=== PATIENT | female | born 1960 | race Caucasian/White ===

== ENCOUNTER 2023-01-29 13:02 | Observation (INO) ==
--- NOTE | 2023-01-29 13:21 | ED Triage Note ---
Date of Service January 29, 2023 History of Present Illness This patient was briefly evaluated while in triage. An abbreviated physical exam was performed. This patient is a 62-year-old Female who presents to the ED for evaluation of hypertension and a headache. She was referred to the ED for blood pressures over 200 systolic while being evaluated for a colonoscopy today. She developed a headache 2/[address] to the ED. She denies any changes in vision, slurred speech, weakness, or numbness, chest pain, or shortness of breath. Physical Exam CONSTITUTIONAL: in no acute pain or distress, resting comfortably SKIN: pink, warm, dry CARDIAC: regular rate and rhythm RESPIRATORY: in no respiratory distress, lungs clear to auscultation NEURO: no focal deficits. no weakness. Initial orders for labs and / or imaging were placed and patient was placed in the waiting area until a bed is available. Please see further documentation for the full ED course.
[2023-01-29 13:43] LABS: Basophils # (auto) 0.02 K/uL (0-0.2); Basophils % (auto) 0.5 %; Eosinophils # (auto) 0.07 K/uL (0-0.50); Eosinophils % (auto) 1.7 %; Hematocrit (blood only) 39.4 % (37.0-47.0); Hemoglobin 13.4 g/dl (12.0-16.0); Immature Granulocytes # (auto) 0.02 K/uL (0.01-0.20); Immature Granulocytes % (auto) 0.5 %; Lymphocytes # (auto) 1.42 K/uL (1.2-3.4); Lymphocytes % (auto) 33.5 %; Mean Corpuscular Hemoglobin 29.8 pg (25.0-34.0); Mean Corpuscular Volume 87.8 fL (80.0-100.0); Monocytes # (auto) 0.27 K/uL (0.11-0.59); Monocytes % (auto) 6.4 %; Neutrophils # (auto) 2.44 K/uL (1.40-6.50); Neutrophils % (auto) 57.4 %; Platelet Count 290 K/uL (130-400); RDW Coefficient of Variation 14.2 % (11.5-14.5); RDW Standard Deviation 45.2 fL (36.4-46.3); Red Blood Count 4.49 M/uL (4.20-5.40); White Blood Count 4.24 K/ul (4.8-10.8)
[2023-01-29 13:59] LABS: Alanine Aminotransferase 18 U/L (7-52); Albumin Globulin Ratio 1.6 (0.9-2); Albumin Level 4.3 gm/dl (3.4-5.0); Alkaline Phosphatase 81 U/L (34-104); Anion Gap 6 (3-11); Aspartate Aminotransferase 17 U/L (13-39); BUN Creatinine Ratio 17.2 (10-20); Bilirubin,Total 0.4 mg/dl (0.2-1.0); Blood Urea Nitrogen 15 mg/dl (6-23); Calcium 9.3 mg/dl (8.6-10.3); Carbon Dioxide 25 mmol/L (21-32); Chloride 108 mmol/L (98-107); Est GFR (African American) 83.9 ml/min; Est GFR (Non-African American) 72.4 ml/min; Globulin 2.7 gm/dl (2.5-4.0); Glucose 93 mg/dl (70-99(Fasting)); Sodium 139 mmol/L (136-145)
[2023-01-29 14:02] LABS: Troponin I High Sensitivity 4.9 pg/ml (0-14)
--- NOTE | 2023-01-29 14:28 | Emergency Department Note ---
Impression & Plan Hypertensive urgency, Leukopenia ED Provider Note NAME: ANDREW SIMMONS AGE: 62 SEX: F : 1960 ARRIVES VIA: Walk-In INFORMANT: Patient ED PROVIDER(S): Christiano Ross DO CHIEF COMPLAINT: HTN HPI: Patient is a 62-year-old female with a past medical history of hypertension and Claudio's esophagus who presents to the ER for elevated blood pressure. Patient was set up to have a colonoscopy today and went in and was found to have an elevated blood pressure in the 200s consequently was sent in. She denies any headache or change in vision. She does note that she had a little bit of a headache earlier today but that has abated. No chest pain or shortness of breath. Admits to diarrhea which has been going on since she started the prep. She denies any dysuria, urgency, or frequency. No other exacerbating or remitting factors. PAST MEDICAL HISTORY:See Below PAST SURGICAL HISTORY:See Below FAMILY HISTORY:See Below SOCIAL HISTORY:See Below HOME MEDICATIONS:See Below ALLERGIES:See Below VITALS:See Below PHYSICAL EXAMINATION: GENERAL: Sitting up in bed, alert, well appearing, well nourished, no distress, non-toxic EYE EXAM: normal conjunctiva. PERRL and EOM's grossly intact. OROPHARYNX: no exudate, no erythema, lips, buccal mucosa, and tongue normal and mucous membranes are moist NECK: supple, no nuchal rigidity, no adenopathy, non-tender LUNGS: Clear to auscultation. Normal chest wall mechanics HEART: no murmurs, S1 normal and S2 normal ABDOMEN: abdomen soft, non-tender, normo-active bowel sounds, no masses, no rebound or guarding. BACK: Back is symmetrical on inspection and there is no deformity, no midline tenderness, no CVA tenderness. SKIN: no rashes and no bruising UPPER EXTREMITIES: upper extremities are grossly normal. LOWER EXTREMITIES: No pitting edema. NEURO EXAM: Normal sensorium, cranial nerves II-XII intact, normal speech, no weakness of arms, no weakness of legs. No drift. Finger to nose intact. Gross sensation intact. MEDICAL DECISION MAKING: Patient is a 62-year-old female who presents ER for above-stated complaint. IV was established blood work was obtained. Labs show mild leukopenia at 4.2 thousand. No significant anemia. BMP with slightly elevated chloride at 108. LFTs bilirubin was unremarkable. Troponin was negative. UA was negative. EKG was nondiagnostic. She was given 2 dose of IV hydralazine with a heart rate in the 50s. She also given dose of Ativan as she was very worked up. Systolic pr essures trended down from 240 to 200. Discussed the case with Dr. Kyle Calhoun for further evaluation management treatment. She denies any chest pain or shortness of breath. No headache. No other exacerbating or remitting factors. Triage Nursing notes reviewed. Limited review of prior medical records performed Vital Signs: reviewed and remarkable for HTN Differential diagnosis: Cardiac ischemia, aortic dissection, pulmonary embolism, pneumothorax, pneumonia, pericarditis, myocarditis, esophageal rupture, GERD, cholecystitis, pancreatitis, musculoskeletal, as well as other pathologies. ER treatment provided: See below Diagnostics interpreted by me include EKG and cardiac monitoring as listed below: -Cardiac Monitoring: An order was placed for continuous cardiac monitoring. The monitor shows a rate of 60 with sinus rhythm. -ECG: Sinus rhythm rate of 58 Left axis No PVCs QTc 424 -Laboratory studies:Interpreted by me as stated above in MDM and shown below. Imaging studies: Xrays: As interpreted by me:none CTs show: CT of the head shows no obvious large bleed per my read CT of the head per radiology was negative Consultation(s): Discussed the case with Dr. Kyle Calhoun as described above Procedures:none Critical Care: I have personally spent 32 minutes of critical care time in the direct management of this patient. This includes bedside care, interpretation of diagnostic studies, and testing, discussion with consultants, patient, and family members, and other required patient management activities. This 32 minutes is in excess of all separately billable procedures. Past Med/Surg History Medical History Anxiety Barretts esophagus Fibromyalgia Hx of osteoarthritis Hx of seasonal allergies Hypertension Migraine Surgical History History of endometrial ablation History of esophagogastroduodenoscopy (EGD) w/dilation x2 Hx of colonoscopy Hx of laparoscopy x10 Hx of sinus surgery Hx of tooth extraction all teeth extracted due to "gum" issue Family History Other No family history of adverse response to anesthesia Social History Smoking Status: Current every day smoker Tobacco Type: Cigarettes Cigarettes Per Day: 5 CIG DAILY>ADVISED; Second Hand Exposure: No; Do You Dip or Chew Tobacco: No; Hx Alcohol Use: Yes Alcohol type: beer Preferred Language: Egyptian Communication Ability: Effective Nuclear Medicine Chief Technologist Required: No Beliefs That Will Affect Care: None Current Living Situation: Significant Other Feels Safe at Home: Yes Assistive Devices: Denture - Upper and Glasses Allergies Allergies Allergy/AdvReac Type Severity Reaction Status Date / Time ampicillin Allergy Intermediate Hives Verified 01/29/23 12:37 Home Meds Home Medications Medication Instructions Recorded Confirmed cholecalciferol (vitamin D3) 125 125 mcg PO QAM 07/01/22 01/29/23 mcg (5,000 unit) capsule omeprazole 40 mg capsule,delayed 40 mg PO QAM 07/01/22 01/29/23 release vitamin B complex (B 1 tab PO QAM 07/01/22 01/29/23 Complex-Vitamin B12 tablet) fluoxetine 40 mg capsule 40 mg PO HS 07/30/22 01/29/23 hydroxyzine HCl 25 mg tablet 25 mg PO QID PRN panic attacks 07/30/22 01/29/23 metoprolol succinate 50 mg 100 mg PO QAM 12/13/22 01/29/23 tablet,extended release 24 hr lorazepam 0.5 mg tablet 0.5 mg PO HS PRN as directed 01/29/23 01/29/23 promethazine 25 mg tablet 25 mg PO QID PRN Nausea 01/29/23 01/29/23 Results & Data (ED) Vital Signs Vital Signs - 24 hr 01/29/23 13:10 01/29/23 14:33 01/29/23 14:36 Temperature 36.6 C Temperature Source Temporal Artery Scan Pulse Rate 64 55 L Pulse Rate [Apical] 57 L Pulse Rate from SpO2 Sensor Respiratory Rate 18 21 Respiratory Effort / Characteristics Non-Labored Spontaneous Respiratory Depth Normal Blood Pressure 233/114 H Blood Pressure [Right Arm] Blood Pressure Mean 153 Blood Pressure Mean [Right Arm] Blood Pressure Position Sitting Pulse Oximetry 96 97 Oxygen Delivery Method Room Air Sepsis Recent Fever Within 48 Hours No Sepsis New/Unexplained Change in Mental Status N/A Sepsis Action Taken by Nursing No Action Required 01/29/23 14:35 01/29/23 14:36 01/29/23 14:36 Temperature Temperature Source Pulse Rate 54 L 59 L Pulse Rate [Apical] Pulse Rate from SpO2 Sensor 58 L Respiratory Rate 14 18 Respiratory Effort / Characteristics Respiratory Depth Blood Pressure 242/104 H Blood Pressure [Right Arm] Blood Pressure Mean 150 Blood Pressure Mean [Right Arm] Blood Pressure Position Pulse Oximetry 97 Oxygen Delivery Method Sepsis Recent Fever Within 48 Hours Sepsis New/Unexplained Change in Mental Status Sepsis Action Taken by Nursing 01/29/23 15:00 01/29/23 15:01 01/29/23 15:01 Temperature Temperature Source Pulse Rate 58 L 60 Pulse Rate [Apical] Pulse Rate from SpO2 Sensor 58 L 59 L Respiratory Rate 19 15 Respiratory Effort / Characteristics Respiratory Depth Blood Pressure 214/127 H Blood Pressure [Right Arm] Blood Pressure Mean 156 Blood Pressure Mean [Right Arm] Blood Pressure Position Pulse Oximetry 97 Oxygen Delivery Method Sepsis Recent Fever Within 48 Hours Sepsis New/Unexplained Change in Mental Status Sepsis Action Taken by Nursing 01/29/23 15:06 01/29/23 15:06 01/29/23 16:55 Temperature Temperature Source Pulse Rate 57 L Pulse Rate [Apical] 76 Pulse Rate from SpO2 Sensor 59 L Respiratory Rate 20 14 Respiratory Effort / Characteristics Respiratory Depth Blood Pressure 238/141 H Blood Pressure [Right Arm] 209/105 H Blood Pressure Mean 173 Blood Pressure Mean [Right Arm] 139 Blood Pressure Position Pulse Oximetry Oxygen Delivery Method Room Air Sepsis Recent Fever Within 48 Hours Sepsis New/Unexplained Change in Mental Status Sepsis Action Taken by Nursing 01/29/23 15:22 01/29/23 15:22 01/29/23 15:30 Temperature Temperature Source Pulse Rate 57 L Pulse Rate [Apical] Pulse Rate from SpO2 Sensor Respiratory Rate 25 H Respiratory Effort / Characteristics Respiratory Depth Blood Pressure 210/133 H 236/106 H Blood Pressure [Right Arm] Blood Pressure Mean 158 149 Blood Pressure Mean [Right Arm] Blood Pressure Position Pulse Oximetry Oxygen Delivery Method Sepsis Recent Fever Within 48 Hours Sepsis New/Unexplained Change in Mental Status Sepsis Action Taken by Nursing 01/29/23 15:30 01/29/23 16:00 01/29/23 16:00 Temperature Temperature Source Pulse Rate 58 L 69 Pulse Rate [Apical] Pulse Rate from SpO2 Sensor Respiratory Rate 22 20 Respiratory Effort / Characteristics Respiratory Depth Blood Pressure 212/137 H Blood Pressure [Right Arm] Blood Pressure Mean 162 Blood Pressure Mean [Right Arm] Blood Pressure Position Pulse Oximetry Oxygen Delivery Method Sepsis Recent Fever Within 48 Hours Sepsis New/Unexplained Change in Mental Status Sepsis Action Taken by Nursing 01/29/23 16:30 Temperature Temperature Source Pulse Rate 71 Pulse Rate [Apical] Pulse Rate from SpO2 Sensor Respiratory Rate 24 Respiratory Effort / Characteristics Respiratory Depth Blood Pressure Blood Pressure [Right Arm] Blood Pressure Mean Blood Pressure Mean [Right Arm] Blood Pressure Position Pulse Oximetry Oxygen Delivery Method Sepsis Recent Fever Within 48 Hours Sepsis New/Unexplained Change in Mental Status Sepsis Action Taken by Nursing Laboratory Data 01/29/23 13:25 01/29/23 13:25 Lab Results 01/29/23 01/29/23 01/29/23 Range/Units 13:25 13:25 15:06 WBC 4.24 L (4.8-10.8) K/ul RBC 4.49 (4.20-5.40) M/uL Hgb 13.4 (12.0-16.0) g/dl Hct 39.4 (37.0-47.0) % MCV 87.8 (80.0-100.0) fL MCH 29.8 (25.0-34.0) pg MCHC 34.0 (32.0-36.0) g/dL RDW Std Deviation 45.2 (36.4-46.3) fL RDW Coeff of Joan 14.2 (11.5-14.5) % Plt Count 290 (130-400) K/uL MPV 10.0 (9.4-12.4) fL Immature Gran % (Auto) 0.5 % Neut % (Auto) 57.4 % Lymph % (Auto) 33.5 % [place] % (Auto) 6.4 % Eos % (Auto) 1.7 % Baso % (Auto) 0.5 % Neut # (Auto) 2.44 (1.40-6.50) K/uL Lymph # (Auto) 1.42 (1.2-3.4) K/uL [place] # (Auto) 0.27 (0.11-0.59) K/uL Eos # (Auto) 0.07 (0-0.50) K/uL Baso # (Auto) 0.02 (0-0.2) K/uL Immature Gran # (Auto) 0.02 (0.01-0.20) K/uL Sodium 139 (136-145) mmol/L Potassium 4.0 (3.5-5.1) mmol/L Chloride 108 H (98-107) mmol/L Carbon Dioxide 25 (21-32) mmol/L Anion Gap 6 (3-11) BUN 15 (6-23) mg/dl Creatinine 0.87 (0.6-1.2) mg/dl Est Cr Clr Drug Dosing Not Reportable Est GFR ( Amer) 83.9 ml/min Est GFR (Non-Af Amer) 72.4 ml/min BUN/Creatinine Ratio 17.2 (10-20) Glucose 93 (70-99(Fasting)) mg/dl Calcium 9.3 (8.6-10.3) mg/dl Total Bilirubin 0.4 (0.2-1.0) mg/dl AST 17 (13-39) U/L ALT 18 (7-52) U/L Alkaline Phosphatase 81 (34-104) U/L Troponin I High Sens 4.9 (0-14) pg/ml Total Protein 7.0 (6.0-8.3) gm/dl Albumin 4.3 (3.4-5.0) gm/dl Globulin 2.7 (2.5-4.0) gm/dl Albumin/Globulin Ratio 1.6 (0.9-2) Urine Color Yellow Urine Appearance Clear (Clear) Urine pH 5.5 (4.5-7.5) Ur Specific [place] 1.010 (1.000-1.030) Urine Protein Negative (Negative) Urine Glucose (UA) Negative (Negative) Urine Ketones Negative (Negative) Urine Blood Negative (Negative) Urine Nitrite Negative (Negative) Urine Bilirubin Negative (Negative) Urine Urobilinogen Negative (Negative) Ur Leukocyte Esterase Negative (Negative) Administered Medications Discontinued Medications Hydralazine HCl (Hydralazine Hcl 20 Mg/Ml Vial) 10 mg IV NOW STA Stop: 01/29/23 14:43 Last Admin: 01/29/23 15:12 Dose: 10 mg Documented By: HERIBERTO Hydralazine HCl (Hydralazine Hcl 20 Mg/Ml Vial) 10 mg IV NOW STA Stop: 01/29/23 15:45 Last Admin: 01/29/23 16:14 Dose: 10 mg Documented By: HERIBERTO Sodium Chloride (Nss 1000ml) 1,000 mls @ 999 mls/hr IV .Q1H1M ONE Stop: 01/29/23 16:49 Last Admin: 01/29/23 16:13 Dose: 999 mls/hr Documented By: HERIBERTO Lorazepam (Lorazepam 2 Mg/1 Ml Vial) 1 mg IV NOW STA Stop: 01/29/23 16:01 Last Admin: 01/29/23 16:16 Dose: 1 mg Documented By: HERIBERTO Imaging Data Radiologist's Impression: Head CT 01/29/23 13:[address] DOSE: 1257.71 mGy.cm HISTORY: Hypertension, frontal headache TECHNIQUE: Multiaxial CT images of the head were performed without the use of intravenous contrast. Automated exposure control was utilized for this study. A dose lowering technique was utilized adhering to the principles of ALARA. Comparison: None. Findings: The paranasal sinuses and mastoid air cells are clear. The calvarium and skull base are intact. The ventricles and sulci are within normal limits. There is no mass, hematoma, midline shift, or acute infarct. Impression: No acute intracranial abnormality. ACT 112: Negative or not required by law. Electronically signed by: Andrey Carreon M.D. 01/29/2023 2:29 PM Discharge Plan Visit Data Chief Complaint: Hypertension Stated Complaint: HYPERTENSIVE CRISIS ED Provider: Chrisitano Ross Discharge Problem: Hypertensive urgency, Leukopenia Forms Stand Alone Forms: [facility] Prescriptions Prescriptions: No Action cholecalciferol (vitamin D3) 125 mcg (5,000 unit) capsule 125 mcg PO QAM vitamin B complex [B Complex-Vitamin B12] Tablet 1 tab PO QAM omeprazole 40 mg capsule,delayed release(DR/EC) 40 mg PO QAM fluoxetine 40 mg Capsule 40 mg PO HS hydroxyzine HCl 25 mg Tablet 25 mg PO QID PRN (Reason: panic attacks) metoprolol succinate 50 mg Tablet Extended Release 24 Hr 100 mg PO QAM lorazepam 0.5 mg tablet 0.5 mg PO HS PRN (Reason: as directed) promethazine 25 mg tablet 25 mg PO QID PRN (Reason: Nausea) Referrals Referrals: Kevin Allen [Primary Care Provider] -
--- NOTE | 2023-01-29 14:30 | CT Scan Report ---
HEAD CT NONCONTRAST CT DOSE: 1257.71 mGy.cm HISTORY: Hypertension, frontal headache TECHNIQUE: Multiaxial CT images of the head were performed without the use of intravenous contrast. A utomated exposure control was utilized for this study. A dose lowering technique was utilized adheri ng to the principles of ALARA. Comparison: None. Findings: The paranasal sinuses and mastoid air cells are clear. The calvarium and skull base are int act. The ventricles and sulci are within normal limits. There is no mass, hematoma, midline shift, or acute infarct. Impression: No acute intracranial abnormality. ACT 112: Negative or not required by law. Electronically signed by: Andrey Carreon M.D. 01/29/2023 2:29 PM
[2023-01-29] MEDS ORDERED: hydrALAZINE HCL 20 MG/ML VIAL IV STA ×3 (14:42→20:40)
--- NOTE | 2023-01-29 15:13 | Electrocardiogram Report ---
Test Reason : Blood Pressure : / mmHG Vent. Rate : 058 BPM Atrial Rate : 058 BPM P-R Int : 154 ms QRS Dur : 092 ms QT Int : 432 ms P-R-T Axes : 025 -46 037 degrees QTc Int : 424 ms Sinus bradycardia Left anterior fascicular block Possible Anterior infarct , age undetermined Abnormal ECG No previous ECGs available Confirmed by Diallo Morejon ([id number]) on 01/29/2023 3:13:23 PM Referred By: Confirmed By:Diallo Morejon
[2023-01-29 15:19] LABS: Appearance Urine Clear (Clear); Bilirubin Urine Negative (Negative); Blood Urine Negative (Negative); Color Urine Yellow; Glucose Urine UA Negative (Negative); Ketones Urine Negative (Negative); Leukocyte Esterase Urine Negative (Negative); Nitrite Urine Negative (Negative); Protein Urine Negative (Negative); Urobilinogen Urine Negative (Negative); pH Urine 5.5 (4.5-7.5)
[2023-01-29] MEDS ORDERED: SODIUM CHLORIDE 0.9% 1000ML 1,000 ML IV ONE (15:49)
[2023-01-29] MEDS ORDERED: LORazepam 2 MG/1 ML VIAL IV STA (16:00)
--- NOTE | 2023-01-29 17:35 | History & Physical Report ---
Date of Service January 29, 2023 Assessment & Plan (1) Hypertensive urgency: Plan: Suspect significant white coat hypertension and risk of over treating although at the same time she has no history of orthostasis, presyncope or syncope Continue hydralazine 10mg IV q4h PRN for sBP > 200 Amlodipine 5mg PO given in the ER after BP started rising again however patient reportedly vomited following this therefore unclear whether this is having any effect. (2) Anxiety: Plan: Continue fluoxetine 40mg PO HS Ativan 0.5mg PO HS as needed (3) Barretts esophagus: Plan: Continue pantoprazole Plan VTE Prophylaxis - low risk Diet - clear liquid Disposition - observation status to PCU Admission and Anticipated Discharge Date Admission Date: January 29, 2023 History of Present Illness Chief Complaint: Hypertensive urgency Primary Care Provider: Kevinrashawn Allen Michelle Conti is a 62 year old female who presents to the ER with uncontrolled hypertension at her outpatient screening colonoscopy earlier today. She reports a headache although notes this is not related to her blood pressure and she gets frequent frontal sinus headaches. No vision changes. She reports the same thing happended with her screening colonoscopy in July and she was unable to get it completed at that time. BP when she normally sees her primary care physician is sBP 120-130. She feels she gets extremely anxious whenever she gets her colonoscopy and this causes her blood pressure to go up. Allergies Allergy/AdvReac Type Severity Reaction Status Date / Time ampicillin Allergy Intermediate Hives Verified 01/29/23 12:37 Home Medications Medication Instructions Recorded Confirmed Type cholecalciferol (vitamin D3) 125 125 mcg PO QAM 07/01/22 01/29/23 History mcg (5,000 unit) capsule omeprazole 40 mg capsule,delayed 40 mg PO QAM 07/01/22 01/29/23 History release vitamin B complex (B 1 tab PO QAM 07/01/22 01/29/23 History Complex-Vitamin B12 tablet) fluoxetine 40 mg capsule 40 mg PO HS 07/30/22 01/29/23 History hydroxyzine HCl 25 mg tablet 25 mg PO QID PRN panic attacks 07/30/22 01/29/23 History metoprolol succinate 50 mg 100 mg PO QAM 12/13/22 01/29/23 History tablet,extended release 24 hr lorazepam 0.5 mg tablet 0.5 mg PO HS PRN as directed 01/29/23 01/29/23 History promethazine 25 mg tablet 25 mg PO QID PRN Nausea 01/29/23 01/29/23 History Past Med/Surg History Medical History (Updated 01/29/23 @ 23:27 by Kyle Calhoun MD) Anxiety Barretts esophagus Fibromyalgia Hx of osteoarthritis Hx of seasonal allergies Hypertension Migraine Surgical History History of endometrial ablation History of esophagogastroduodenoscopy (EGD) w/dilation x2 Hx of colonoscopy Hx of laparoscopy x10 Hx of sinus surgery Hx of tooth extraction all teeth extracted due to "gum" issue Family History Other No family history of adverse response to anesthesia Social History Smoking Status: Current every day smoker Tobacco Type: Cigarettes Cigarettes Per Day: 6; Second Hand Exposure: Yes; Do You Dip or Chew Tobacco: No; Tobacco Cessation Education Requested by Patient: No Hx Alcohol Use: Yes Alcohol type: beer Hx Substance Use: No Preferred Language: Indonesian Communication Ability: Effective Tray Drier Required: No Beliefs That Will Affect Care: None Current Living Situation: Spouse Other Information That Helps Us Care for You: No Feels Safe at Home: Yes Safety Concerns: Feels Safe At This Time Assistive Devices: Glasses Review of Systems Review of Systems: All systems reviewed & are unremarkable except as noted in HPI & below Physical Exam Constitutional: WD/WN, vitals as above Eyes: + anicteric sclerae; normal pupil size ENMT: external ear and nose normal, oropharynx normal Respiratory: normal respiratory effort, lungs clear to auscultation Cardiovascular: RRR, no murmur, no edema Gastrointestinal (Abdomen): normal bowel sounds, soft, nontender, no hepatosplenomegaly Musculoskeletal: no cyanosis or clubbing, extremities motor strength 5/5 Skin: no rashes, warm and dry Neurologic: moves all extremities and awake; not confused Psychiatric: A+Ox3, euthymic affect Results & Data Results & Data Vital Signs (Past 12 Hours) Vital Signs Temp Pulse Pulse Resp BP BP Pulse Ox 01/29/23 17:00 72 22 01/29/23 17:00 224/104 H 01/29/23 16:30 71 24 01/29/23 16:00 69 20 01/29/23 16:00 212/137 H 01/29/23 15:30 58 L 22 01/29/23 15:30 236/106 H 01/29/23 15:22 57 L 25 H 01/29/23 15:22 210/133 H 01/29/23 16:55 76 14 209/105 H 01/29/23 15:06 238/141 H 01/29/23 15:06 57 L 20 01/29/23 15:01 60 15 97 01/29/23 15:01 214/127 H 01/29/23 15:00 58 L 19 01/29/23 14:36 59 L 18 97 01/29/23 14:36 242/104 H 01/29/23 14:35 54 L 14 01/29/23 14:36 55 L 01/29/23 14:33 57 L 21 97 01/29/23 13:10 36.6 C 64 18 233/114 H 96 O2 Del Method 01/29/23 17:00 01/29/23 17:00 01/29/23 16:30 01/29/23 16:00 01/29/23 16:00 01/29/23 15:30 01/29/23 15:30 01/29/23 15:22 01/29/23 15:22 01/29/23 16:55 Room Air 01/29/23 15:06 01/29/23 15:06 01/29/23 15:01 01/29/23 15:01 01/29/23 15:00 01/29/23 14:36 01/29/23 14:36 01/29/23 14:35 01/29/23 14:36 01/29/23 14:33 Room Air 01/29/23 13:10 Laboratory Results Abnormal lab results 01/29/23 01/29/23 Range/Units 13:25 13:25 WBC 4.24 L (4.8-10.8) K/ul Chloride 108 H (98-107) mmol/L Diagnostic Findings HEAD CT NONCONTRAST CT DOSE: 1257.71 mGy.cm HISTORY: Hypertension, frontal headache TECHNIQUE: Multiaxial CT images of the head were performed without the use of intravenous contrast. Automated exposure control was utilized for this study. A dose lowering technique was utilized adhering to the principles of ALARA. Comparison: None. Findings: The paranasal sinuses and mastoid air cells are clear. The calvarium and skull base are intact. The ventricles and sulci are within normal limits. There is no mass, hematoma, midline shift, or acute infarct. Impression: No acute intracranial abnormality. XR chest 1V portable CLINICAL HISTORY: Hypertension. COMPARISON STUDY: No previous studies for comparison. FINDINGS: Lung volumes are normal. Lungs are clear. There is no pneumothorax or pleural effusion. There is mild cardiomegaly. Mediastinal contours are normal. There is no evidence for pulmonary edema. IMPRESSION: No acute cardiopulmonary findings. Mild cardiomegaly. Medications Administered ER Medications Given: Hydralazine 10mg IV x2 NSS 1L bolus Lorazepam 1mg IV ECG Rate (beats per minute): 58 Rhythm: normal sinus Findings: + LAFB Comparison ECG Date: no prior available Code Status & VTE Plan Code Status Full VTE Prophylaxis Plan VTE Prophylaxis will be ordered: No PG Care Time/CCT Total # of Minutes Spent Total Time Spent with Patient: Total time spent is greater than 50% in coordination of care (as documented) at patient's floor/unit and/or counseling patient: Coding Level of Care Code 16523 INT INP/OBS CARE 2/55MIN Diagnoses Hypertensive urgency I16.0 Anxiety F41.9 Barretts esophagus K22.70
--- NOTE | 2023-01-29 18:36 | XRay Report ---
XR chest 1V portable CLINICAL HISTORY: Hypertension. COMPARISON STUDY: No previous studies for comparison. FINDINGS: Lung volumes are normal. Lungs are clear. There is no pneumothorax or pleural effusion. The re is mild cardiomegaly. Mediastinal contours are normal. There is no evidence for pulmonary edema. IMPRESSION: No acute cardiopulmonary findings. Mild cardiomegaly. ACT 112: Negative or not required by law. Electronically signed by: Kwaku Hagan M.D. 01/29/2023 6:34 PM
[2023-01-29] MEDS ORDERED: amLODIPine BESYLATE 5 MG TAB PO ONE (20:45)
[2023-01-29] MEDS ORDERED: hydrALAZINE HCL 20 MG/ML VIAL IV PRN (22:17)
[2023-01-29] MEDS ORDERED: ACETAMINOPHEN 325 MG TAB PO PRN (22:17)
[2023-01-29] MEDS ORDERED: LORazepam 0.5 MG TAB PO PRN (22:17)
[2023-01-29] MEDS: ONDANSETRON INJ 2 MG/ML 2 ML VIAL IV SCH (23:09)
[2023-01-29] MEDS: METOPROLOL SUCC 50MG EXT REL TAB PO SCH (23:12)
[2023-01-29] MEDS: FLUoxetine HCL 20 MG CAP PO SCH (23:12)
[2023-01-30 06:32] LABS: Basophils # (auto) 0.02 K/uL (0-0.2); Basophils % (auto) 0.3 %; Eosinophils # (auto) 0.01 K/uL (0-0.50); Eosinophils % (auto) 0.2 %; Hematocrit (blood only) 39.2 % (37.0-47.0); Hemoglobin 13.5 g/dl (12.0-16.0); Immature Granulocytes # (auto) 0.02 K/uL (0.01-0.20); Immature Granulocytes % (auto) 0.3 %; Lymphocytes # (auto) 1.46 K/uL (1.2-3.4); Lymphocytes % (auto) 24.1 %; Mean Corpuscular Hemoglobin 30.2 pg (25.0-34.0); Mean Corpuscular Hgb Conc 34.4 g/dL (32.0-36.0); Mean Corpuscular Volume 87.7 fL (80.0-100.0); Mean Platelet Volume 9.7 fL (9.4-12.4); Monocytes # (auto) 0.43 K/uL (0.11-0.59); Monocytes % (auto) 7.1 %; Neutrophils # (auto) 4.12 K/uL (1.40-6.50); Platelet Count 311 K/uL (130-400); RDW Standard Deviation 44.8 fL (36.4-46.3); Red Blood Count 4.47 M/uL (4.20-5.40); White Blood Count 6.06 K/ul (4.8-10.8)
[2023-01-30] MEDS: ONDANSETRON INJ 2 MG/ML 2 ML VIAL IV SCH ×3 (06:35→17:29)
[2023-01-30 06:54] LABS: Albumin Globulin Ratio 1.7 (0.9-2); Albumin Level 4.2 gm/dl (3.4-5.0); BUN Creatinine Ratio 14.5 (10-20); Bilirubin,Total 0.4 mg/dl (0.2-1.0); Calcium 9.2 mg/dl (8.6-10.3); Creatinine Clr Calc Pharmacy 77.5 ml/min; Est GFR (African American) 88.8 ml/min; Est GFR (Non-African American) 76.6 ml/min; Globulin 2.5 gm/dl (2.5-4.0); Potassium 3.7 mmol/L (3.5-5.1); Total Protein 6.7 gm/dl (6.0-8.3)
[2023-01-30] MEDS: METOPROLOL SUCC 50MG EXT REL TAB PO SCH ×2 (08:04→20:25)
[2023-01-30] MEDS: CHOLECALCIFEROL 5,000 UNITS 125 MCG TAB PO SCH (08:05)
[2023-01-30] MEDS: PANTOprazole 40 MG TAB PO SCH (08:05)
[2023-01-30] MEDS: hydrALAZINE HCL 20 MG/ML VIAL IV PRN (14:29)
[2023-01-30] MEDS ORDERED: hydroCHLOROthiazide 25 MG TAB PO STA (14:33)
[2023-01-30] MEDS ORDERED: LABETALOL HCL IV 5 MG/ML 20ML IV STA (16:56)
--- NOTE | 2023-01-30 17:44 | Hospitalist Progress Note ---
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 normal, CT head neg and no stroke symptoms Continue hydralazine 10mg IV q4h PRN for sBP > 200 -start HCTZ 25mg po daily -continue home Toprol XL 50mg po bid -consider addition of amlodipine if no improvement -IV labetalol 10mg IV x 1 given evening of 01/30 (2) Anxiety: Plan: Continue fluoxetine 40mg PO HS Ativan 0.5mg PO HS as needed (3) Barretts esophagus: Plan: Continue pantoprazole Plan VTE Prophylaxis - low risk, ambulation Diet -advance to low sodium diet Disposition -continued stay observation status on PCU, likely dc to home tomorrow Admission and Anticipated Discharge Date Admission Date: January 29, 2023 Subjective Pt anxious and reports her BP is always up around doctors except with her PCP whom she has known for 30 years, it does come down. BPs at home usually 130-140s systolic. No headache, CP, SOB, abd pain, nausea, is hungry. Admits to always being resistant to taking medications but is willing to trial a water pill. Tele with NSR, rates 60s Physical Exam Constitutional: WD/WN, vitals as above Eyes: PERRL, conjunctivae normal, anicteric sclerae ENMT: external ear and nose normal, oropharynx normal Neck: trachea midline, no thyromegaly Respiratory: normal respiratory effort, lungs clear to auscultation Cardiovascular: RRR, no murmur, no edema Vessels: dorsalis pedis pulses present Chest (Breasts): Chest: normal inspection of chest Gastrointestinal (Abdomen): normal bowel sounds, soft, nontender, no hepatosplenomegaly Musculoskeletal: Extremities: extremities normal to inspection; no cyanosis and no clubbing Skin: no rashes, warm and dry Neurologic: moves all extremities and awake; no focal motor deficits Psychiatric: Orientation: alert, oriented x 3 and cooperative Affect: + anxious affect Lymphatic: no lymphedema Results & Data Results & Data Vital Signs (Past 12 Hours) Vital Signs Temp Pulse Pulse Resp BP Pulse Ox O2 Del Method 01/30/23 16:30 217/119 H 01/30/23 15:59 212/118 H 01/30/23 15:57 62 01/30/23 15:26 36.3 C L 66 18 214/112 H 97 Room Air 01/30/23 14:24 235/127 H 01/30/23 11:33 36.5 C 63 18 195/126 H 98 Room Air 01/30/23 08:46 75 01/30/23 08:01 36.6 C 73 18 149/99 H 94 Room Air Laboratory Results CBC, CMP, UA reviewed PG Care Time/CCT Total # of Minutes Spent Total Time Spent with Patient: Total time spent is greater than 50% in coordination of care (as documented) at patient's floor/unit and/or counseling patient: Coding Level of Care Code 47894 SUB INP/OBS CARE 2/35MIN Diagnoses Hypertensive urgency I16.0 Anxiety F41.9 Barretts esophagus K22.70
[2023-01-30] MEDS: FLUoxetine HCL 20 MG CAP PO SCH (20:25)
[2023-01-30] MEDS: amLODIPine BESYLATE 5 MG TAB PO SCH (21:20)
[2023-01-31] MEDS: ONDANSETRON INJ 2 MG/ML 2 ML VIAL IV SCH ×3 (00:34→11:17)
[2023-01-31 06:37] LABS: Calcium 9.6 mg/dl (8.6-10.3); Creatinine Clr Calc Pharmacy 59.6 ml/min; Est GFR (African American) 64.6 ml/min; Est GFR (Non-African American) 55.8 ml/min; Potassium 3.5 mmol/L (3.5-5.1)
[2023-01-31] MEDS: PANTOprazole 40 MG TAB PO SCH (07:51)
[2023-01-31] MEDS: CHOLECALCIFEROL 5,000 UNITS 125 MCG TAB PO SCH (07:52)
[2023-01-31] MEDS: METOPROLOL SUCC 50MG EXT REL TAB PO SCH (07:52)
[2023-01-31] MEDS: amLODIPine BESYLATE 5 MG TAB PO SCH (07:52)
[2023-01-31] MEDS ORDERED: hydroCHLOROthiazide 25 MG TAB PO SCH (09:00)
--- NOTE | 2023-01-31 10:48 | XCELERA ---
[id number]
[2023-01-31] MEDS: hydrALAZINE HCL 20 MG/ML VIAL IV PRN (11:32)
--- NOTE | 2023-01-31 15:48 | Discharge Summary ---
Date of Service January 31, 2023 Admission HPI Per Admitting Provider Michelle Conti is a 62 year old female who presents to the ER with uncontrolled hypertension at her outpatient screening colonoscopy earlier today. She reports a headache although notes this is not related to her blood pressure and she gets frequent frontal sinus headaches. No vision changes. She reports the same thing happended with her screening colonoscopy in July and she was unable to get it completed at that time. BP when she normally sees her primary care physician is sBP 120-130. She feels she gets extremely anxious whenever she gets her colonoscopy and this causes her blood pressure to go up. Principal Diagnosis Hypertensive urgency Discharge Exam Constitutional WD/WN, vitals as above Neck trachea midline, no thyromegaly Respiratory normal respiratory effort, lungs clear to auscultation Cardiovascular RRR, no murmur, no edema Chest (Breasts) Chest: normal inspection of chest Musculoskeletal Extremities: extremities normal to inspection; no cyanosis and no clubbing Skin no rashes, warm and dry Neurologic moves all extremities and awake; no focal motor deficits Psychiatric Orientation: alert, oriented x 3 and cooperative Lymphatic no lymphedema Discharge Data Allergies Allergy/AdvReac Type Severity Reaction Status Date / Time ampicillin Allergy Intermediate Hives Verified 01/29/23 12:37 Consultations 01/29/23 15:49 ED Decision to Admit Stat Ordered Studies 01/29/23 13:16 CT head/brain wo con Stat Hospital Course (1) Hypertensive urgency: Suspect significant white coat hypertension with underlying HTN stage 1 (BPs at home even are often 140s/90s) BPs were 200s/100s for over 24 hrs with improvement after starting amlodipine, HCTZ, and splitting Toprol to 50mg bid Gave prn IV hydralazine and labetalol Renal function and UA normal ECHO with mild LVH, preserved EF Admits to weight gain, high sodium diet, stopped walking for exercise, and continues to smoke daily No end organ damage noted, trop neg, 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, CT head neg and no stroke symptoms -started HCTZ 25mg po daily -continue home Toprol XL 50mg po bid -started amlodipine 5mg po daily -counseled on weight loss, smoking cessation, low sodium diet on discharge (2) Anxiety: Continue fluoxetine 40mg PO HS Ativan 0.5mg PO HS as needed f/u outpt with PCP and has referral to Psychiatry (3) Barretts esophagus: Continue pantoprazole Plan VTE Prophylaxis - low risk, ambulation Disposition -dc to home Total Time Total Time Spent Total Time Spent (In Minutes): 35 min Discharge Plan Discharge Items Patient Disposition: Home - Self-Care Reason For Visit: UNCONTROLLED HYPERTENSION Discharge Diagnosis: Hypertensive urgency Condition on Discharge: Good Activity: Resume your previous activity Non-emergency contact: Primary Care Provider Call non-emergency contact if: you have any medication questions and your symptoms worsen Follow-up/Referrals: Kevin Allen [Primary Care Provider] - (Follow up as planned on Friday) Diet: Low Sodium (2gm) Diet Comment: Check out the "DASH" diet online for lowering blood pressure. Addtl Attending Provider Instructions: You were admitted with high blood pressures. you were given medications to bring your blood pressure down and will be started on a water pill called HCTZ once daily in the morning as well as amlodipine 5mg once daily. You had blood work which showed your kidney function is normal. You had an Echocardiogram which was normal. You can continue taking the metoprolol but can split to take it twice a day. Please have your PCP check your kidney function and potassium/sodium levels in 1 week after starting the water pill. Please continue to monitor your blood pressures at home and follow up with your PCP within 1 week. You should try to quit smoking as we discussed. Increasing your exercise level and eating a healthier diet, losing weight can all help lower your blood pressure. Pending Studies at Discharge: No Stand-Alone Forms: My [facility], Smoking Cessation Medications and DC Order Prescriptions: New hydrochlorothiazide 25 mg Tablet 25 mg PO QAM Qty: 30 0RF amlodipine [Norvasc] 5 mg Tablet 5 mg PO QAM Qty: 30 0RF Continued cholecalciferol (vitamin D3) 125 mcg (5,000 unit) capsule 125 mcg PO QAM vitamin B complex [B Complex-Vitamin B12] Tablet 1 tab PO QAM omeprazole 40 mg capsule,delayed release(DR/EC) 40 mg PO QAM fluoxetine 40 mg Capsule 40 mg PO HS hydroxyzine HCl 25 mg Tablet 25 mg PO QID PRN (Reason: panic attacks) lorazepam 0.5 mg tablet 0.5 mg PO HS PRN (Reason: as directed) promethazine 25 mg tablet 25 mg PO QID PRN (Reason: Nausea) Changed metoprolol succinate 50 mg Tablet Extended Release 24 Hr 50 mg PO BID Qty: 60 0RF Discharge Orders: Discharge Order (Routine); Ordered 01/31/23 Ordered By: Flakita Geller Admission Data Admit Date/Time: 01/29/23 17:51 Attending Provider: Flakita Geller Admit Provider: Kyle Calhoun Primary Care Provider: Kevin Allen Other Providers: Kyle Calhoun Coding Level of Care Code 70958 INP/OBS DISCH >30 MIN Diagnoses Hypertensive urgency I16.0 Anxiety F41.9 Barretts esophagus K22.70
== END 2023-01-31 16:55 | disposition home or self-care (01) ==
LOC: ED 13:02 → 2S 13:02 → SUATTDRO 17:51 → 2S 21:22